=== PATIENT | male | born 1965 | race Caucasian/White ===

== ENCOUNTER 2019-03-21 15:42 | Outpatient (CLI) | payer BC, OTHER ==
--- NOTE | 2019-03-23 03:02 | XRAY Report ---
Reason: Pain and edema Left foot Procedure Date: 03/21/2019 Accession Number: [id number] / [id number] Procedure: XR - Foot 3 View LT CPT Code: FULL RESULT: EXAM: LEFT FOOT RADIOGRAPHY EXAM DATE: 03/21/2019 03:51 PM. CLINICAL HISTORY: Pain and edema Left foot. COMPARISON: None. TECHNIQUE: 3 views. FINDINGS: Bones: No evidence of fracture. Accessory ossicle posterior to the talus, with pseudoarthrosis formations. Joints: Mild medial subluxation of the second through fourth metatarsophalangeal joints. Soft Tissues: Soft tissue swelling. No radiopaque foreign body. IMPRESSION: Mild medial subluxation of the second through fourth metatarsophalangeal joints. RADIA
== END 2019-03-21 15:43 | disposition home or self-care (01) ==
LOC: DI 15:42
PROVIDERS: ATTEND Podiatrist
DX: S93.145A Subluxation of metatarsophalangeal joint of left lesser toe(s), initial encounter (principal)

== ENCOUNTER 2022-12-18 08:00 | Outpatient (CLI) | payer BC ==
--- NOTE | 2022-12-18 16:06 | XRAY Report ---
PROCEDURE: Elbow 3 View RT INDICATIONS: RIGHT BICEP PAIN/INJURY TECHNIQUE: 3 views of the elbow were acquired. COMPARISON: None. FINDINGS: Bones: No acute fractures or dislocations. No suspicious bony lesions. Soft tissues: No effusion. No suspicious soft tissue calcifications or masses. Mild nonspecific swift bcutaneous edema. IMPRESSION: No acute osseous abnormality. If symptoms persist or there is continued clinical concern, further alysha luation with MRI or CT may be helpful. Reviewed by: Elmo De La Paz MD on 12/18/2022 4:04 PM PDT Approved by: Elmo De La Paz MD on 12/18/2022 4:04 PM PDT Station ID: [id number]
== END 2022-12-18 23:59 | disposition home or self-care (01) ==
LOC: DI.WOS 08:00
PROVIDERS: ATTEND Orthopaedic Surgery
DX: M79.601 Pain in right arm (principal)

== ENCOUNTER 2022-12-18 16:37 | Outpatient (CLI) | payer BC ==
--- NOTE | 2022-12-18 20:17 | MRI Report ---
PROCEDURE: ELBOW WO - RT INDICATIONS: RIGHT BICEPS TENDON RUPTURE TECHNIQUE: Noncontrast coronal proton density fast spin echo and T2 fast spin echo with fat saturation, axial an d sagittal T1 spin echo and T2 fast spin echo with fat saturation through the elbow. COMPARISON: None. FINDINGS: Image quality: Excellent. Lateral structures: The lateral ulnar collateral ligament and radial collateral ligament both appear intact. The overlying common extensor tendon also appears normal. Medial structures: The ulnar collateral ligament appears intact. The overlying common flexor tendon appears normal. The ulnar nerve appears normal in size and signal within the cubital tunnel. Anterior structures: There is complete rupture of the biceps tendon from its insertion on the greate r tuberosity with retraction of the tendon by approximately 9 cm. There is extensive associated fluid and edema along its expected course as well as edema tracking proximally along the myotendinous junc tion which is not fully included on the current study. The brachialis tendon appears intact. The medi an and radial neurovascular bundles appear normal; no focal muscle atrophy to suggest nerve impingeme nt. Posterior structures: The triceps tendon appears intact. There is subcutaneous edema along the dorsa l aspect of the elbow overlying the olecranon which is nonspecific and may represent bursitis, a elizabeth debi, or infection. Bone and cartilage: No bone marrow contusions or fractures. No osteochondral injuries. IMPRESSION: 1. Complete rupture of the biceps tendon from its insertion with retraction by approximately 9 cm. 2. Subcutaneous fluid collection along the dorsal aspect of the elbow overlying the olecranon is nons pecific and the differential includes olecranon bursitis, a hematoma, or infection. Reviewed by: Fredi Armstrong MD on 12/18/2022 8:15 PM PDT Approved by: Fredi Armstrong MD on 12/18/2022 8:15 PM PDT Station ID: [id number]
== END 2022-12-18 16:38 | disposition home or self-care (01) ==
LOC: DI 16:37
PROVIDERS: ATTEND Orthopaedic Surgery
DX: M66.321 Spontaneous rupture of flexor tendons, right upper arm (principal)

== ENCOUNTER 2023-01-28 06:34 | Day surgery (SDC) | payer BC ==
[~2023-01-28 06:34] MED LIST: ceFAZolin 2 GM VIAL ONE
[2023-01-28] MEDS ORDERED: LACTATED RINGERS 1,000 ML IV ONE ×2 (06:49→08:35)
[2023-01-28] MEDS ORDERED: PROPOFOL 200 MG/20 ML VIAL IVP ONE ×2 (07:12→07:45)
[2023-01-28] MEDS ORDERED: MIDAZOLAM 2 MG/2 ML VIAL ONE (07:13)
[2023-01-28] MEDS ORDERED: fentaNYL 100 MCG/2 ML VIAL ONE ×2 (07:13→09:13)
[2023-01-28] MEDS ORDERED: ROCURONIUM 50 MG/5 ML VIAL ONE (07:16)
--- NOTE | 2023-01-28 07:17 | ANESTHESIA ---
Pre-Anesthesia VS, & Labs - Diagnosis BPH with lower UTI s/sx - Procedure TURP Vital Signs: Temp Pulse Resp BP Pulse Ox O2 Flow Rate 36.5 C 62 16 139/97 H 98 01/28/23 06:49 01/28/23 06:49 01/28/23 06:49 01/28/23 06:49 01/28/23 06:49 Height: 6 ft Weight (kg): 110 kg Body Mass Index: 32.8 BMI Classification: Obese - NPO >8 hours - Lab Results Lab results reviewed: Yes Home Medications and Allergies Home Medications: Ambulatory Orders Dutasteride 1 tab PO DAILY 01/25/23 Losartan Potassium 1 tab PO DAILY 01/25/23 Tamsulosin [Flomax] 1 tab PO DAILY 01/25/23 traZODone [Desyrel] 1 tab PO DAILY 01/25/23 Dutasteride 1 tab PO DAILY 01/25/23 Losartan Potassium 1 tab PO DAILY 01/25/23 Tamsulosin [Flomax] 1 tab PO DAILY 01/25/23 traZODone [Desyrel] 1 tab PO DAILY 01/25/23 Allergies/Adverse Reactions: Allergies Allergy/AdvReac Type Severity Reaction Status Date / Time codeine Allergy Hives Verified 01/28/23 07:12 NSAIDS (Non-Steroidal AdvReac Unknown Verified 01/28/23 07:12 Anti-Inflamma Anes History & Medical History - Anesthetic History Anesthesia Complications: reports: No previous complications Family history of Anesthesia Complications: Denies Family history of Malignant Hyperthermia: Denies - Medical History Cardiovascular: reports: Hypertension Pulmonary: reports: Sleep apnea, CPAP use Gastrointestinal: reports: GI bleed Urinary: reports: Benign prostate hypertrophy Musculoskeletal: reports: Other (current R arm sling for) Endocrine/Autoimmune: reports: None Psychosocial: reports: Depression, Anxiety, Alcohol History of Cancer?: No - Surgical History General: reports: Colonoscopy, Other Orthopedic: reports: Other (biceps tendon repair 2 weeks ago) Exam General: Alert, Oriented x3, Cooperative Dental: WNL Mouth Openin Fingerbreadth Neck Mobility: Normal Mallampati classification: II Thyromental Distance: 4-6 cm Respiratory: Lungs clear, Normal breath sounds, No respiratory distress Cardiovascular: Regular rate Neurological: Normal speech Mental/Cognitive Status: Alert/Oriented X3, Normal for patient Cognitive Status: Within normal limits Plan Anesthesia Type: General Consent for Procedure(s) Verified and Reviewed: Yes Code Status: Attempt Resuscitation ASA classification: 2-Mild systemic disease Is this case an emergency?: No
[2023-01-28] MEDS ORDERED: LIDOCAINE 2% URO-JET 5 ML SYRINGE UR ONE ×2 (07:19→07:49)
[2023-01-28] MEDS ORDERED: ONDANSETRON 4 MG/2 ML VIAL IVP PRN (07:24)
[2023-01-28] MEDS ORDERED: NALOXONE 0.4 MG/ML VIAL IVP PRN (07:24)
[2023-01-28] MEDS ORDERED: ATROPINE ABBOJECT 1 MG/10 ML SYRINGE IVP PRN (07:24)
[2023-01-28] MEDS ORDERED: fentaNYL 100 MCG/2 ML VIAL IVP PRN (07:24)
[2023-01-28] MEDS ORDERED: ePHEDrine 50 MG/ML VIAL IVP PRN (07:24)
[2023-01-28] MEDS ORDERED: MORPHINE 2 MG/ML CARPUJECT IVP PRN (07:24)
[2023-01-28] MEDS ORDERED: METOCLOPRAMIDE 10 MG/2 ML VIAL IVP PRN (07:24)
[2023-01-28] MEDS ORDERED: DEXAMETHASONE 4 MG/ML VIAL ONE (07:51)
[2023-01-28] MEDS ORDERED: LACTATED RINGERS 1,000 ML IV SCH (08:00)
--- NOTE | 2023-01-28 08:27 | Discharge Plan ---
Discharge Plan Problem Reviewed?: Yes Disposition: Home, Self Care Condition: Good Prescriptions: Docusate Sodium 100Mg Capsule [Colace 100Mg Capsule] 100 mg PO DAILY #14 cap traMADol [Ultram] 50 mg PO Q4-6H #12 tablet Diet: Regular Activity Restrictions: No Restrictions Shower Restrictions: Yes (No bathing (soaking in water) until catheter removed. OK to shower.) Driving Restrictions: Yes (No driving while taking pain medications) Plan of Treatment: Please remove catheter yourself the morning of 01/31/23. If you cannot void within 6 hours, please call the urology office Additional Instructions or Follow Up instructions: It is normal to see blood in or around the catheter It is normal for urine to occasionally drain around the catheter You will see blood in the urine intermittently after catheter removed for several weeks It is normal to have increased frequency and urgency of urination for up to several months after this procedure You will be contacted for followup in about 6 weeks postoperatively No Smoking: If you smoke, Please STOP! Call for help. Follow-up with: Flaco White MD [Provider Admit Priv/Credential] -
[2023-01-28] MEDS: HYDROmorphone 0.5 MG/0.5 ML SYRINGE IVP PRN ×2 (08:44→08:56)
[2023-01-28] MEDS ORDERED: HYDROmorphone 1 MG/ML CARPUJECT ONE (08:47)
--- NOTE | 2023-01-28 08:53 | OPERATIVE REPORT ---
Operative Report - General Procedure Date: 01/28/23 Planned Procedure: Transurethral resection of the prostate Pre-Op Diagnosis: BPH with LUTS Procedure Performed: Transurethral resection of the prostate Post Op Diagnosis: BPH with LUTS - Procedure Note Primary Surgeon: Christopher Anesthesia Provider: AARON Cox Anesthesia Technique: General LMA Pathology: Prostate chips Estimated Blood Loss (mL): 50 Indications: BPH with LUTS Findings: Trilobar hypertrophy Moderate trabeculations Complications: none - Other Other Information/Narrative: After informed consent was obtained the patient was brought to the OR and laid in the supine position. As per anesthesia protocols he was anesthetized. He was then put in the lithotomy position. He was prepped draped in the usual sterile fashion he had preoperative antibiotics including Ancef. A 19 Lao cystoscope was advanced into the urinary bladder which showed that he had no urethral stricture or other pathology there he did however have trilobar hypertrophy of his prostate with a moderate-sized median lobe his bladder itself was fairly large he did have moderate trabeculations there were no other masses or other concerns he is ureteral orifices were both orthotopic. Then a 26 Lao resectoscope was advanced into the urinary bladder using a loop bipolar resection his adenomatous tissue was resected from the level of the bladder neck to the verumontanum and a 360 degree fashion. Spot cautery was used for any bleeding into attain hemostasis. An [employer] evacuator was used to remove prostate chips and sent for analysis at the conclusion of the procedure there was a wide open channel from the bladder neck to the verumontanum. The ureter orifices were reidentified and were not injured there was good hemostasis. A Uro-Jet was placed and then a 22 Lao three-way Whitlock catheter with 40 cc in the urinary balloon was placed. Continuous bladder irrigation was continued with saline. The patient was then awoken and brought to the PACU without further incident. All surgical counts were correct.
--- NOTE | 2023-01-28 10:09 | ANESTHESIA POST OP EVALUATION ---
Anesthesia Post Eval - Post Anesthesia Eval Vitals: Last Vital Signs Temp 36.7 C 01/28/23 10:00 Pulse 66 01/28/23 10:00 Resp 12 01/28/23 10:00 BP 133/90 H 01/28/23 10:00 Pulse Ox 98 01/28/23 10:00 O2 Flow Rate CV Function Including HR & BP: Stable Pain Control: Satisfactory Nausea & Vomiting: Negative Mental Status: Baseline Respiratory Status: Airway Patent Hydration Status: Satisfactory Anesthesia Complications: None
[2023-01-28 10:46] VITALS: BP 124/97
== END 2023-01-28 06:35 | disposition home or self-care (01) ==
LOC: SDS 06:34
PROVIDERS: ATTEND Urology
PROC: 0VB08ZZ Excision of Prostate, Via Natural or Artificial Opening Endoscopic (ICD-10-PCS; principal; 2023-01-28 07:30)
DX: N40.1 Benign prostatic hyperplasia with lower urinary tract symptoms (principal); R39.11 Hesitancy of micturition; G47.33 Obstructive sleep apnea (adult) (pediatric); E66.9 Obesity, unspecified; Z68.32 Body mass index [BMI] 32.0-32.9, adult; I10 Essential (primary) hypertension
CPT/HCPCS: 52601; J1170; J7120

== ENCOUNTER 2023-03-13 08:00 | Outpatient (CLI) | payer BC, OTHER ==
[2023-03-13 16:07] LABS: BILIRUBIN,URINE NEGATIVE (NEGATIVE); GLUCOSE, URINE (UA) NEGATIVE (NEGATIVE); KETONES,URINE (UA) NEGATIVE (NEGATIVE); LEUKOCYTE ESTERASE, URINE NEGATIVE (NEGATIVE); NITRITE,URINE NEGATIVE (NEGATIVE); OCCULT BLOOD,URINE TRACE-INTA (NEGATIVE); PROTEIN,URINE TRACE mg/dL (NEGATIVE); UROBILINOGEN,URINE 0.2 (NORMAL) E.U./dL (NORMAL)
[2023-03-13 16:09] LABS: CLARITY,URINE CLEAR (CLEAR)
[2023-03-13 17:07] LABS: BACTERIA,URINE Rare /HPF (None Seen); SQUAMOUS EPITHELIAL CELL,UR NONE SEEN (<= Few)
== END 2023-03-13 23:59 | disposition home or self-care (01) ==
LOC: LAB 08:00
PROVIDERS: ATTEND Urology
DX: N40.1 Benign prostatic hyperplasia with lower urinary tract symptoms (principal)
CPT/HCPCS: 81001; 87086

== ENCOUNTER 2023-11-11 07:12 | Outpatient (CLI) | payer BC, OTHER | END 2023-11-11 07:13 | disposition home or self-care (01) | LOC: LAB 07:12 | PROVIDERS: ATTEND Urology | DX: R68.82 Decreased libido (principal) | CPT/HCPCS: 36415; 84403 ==

== ENCOUNTER 2023-11-12 07:14 | Outpatient (CLI) | payer BC, OTHER ==
[2023-11-12 07:56] LABS: THYROID STIMULATING HORMONE 2.76 uIU/mL (0.34-5.60)
[2023-11-12 08:02] LABS: PROLACTIN 6.01 ng/mL
== END 2023-11-12 07:15 | disposition home or self-care (01) ==
LOC: LAB 07:14
PROVIDERS: ATTEND Urology
DX: E29.1 Testicular hypofunction (principal)
CPT/HCPCS: 36415; 82670; 83002; 84146; 84153; 84403; 84443